=== PATIENT | male | born 1965 | race Caucasian/White ===

== ENCOUNTER → 2017-05-15 | Outpatient (CLI) | payer BC ==
--- NOTE | 2017-05-16 08:36 | PCVCIMAG ---
APPROVED REPORT Exam: Stress Echocardiogram Indication: Palpitations , Chest pain Patient Location: Echo lab Stress Nurse: Kamilah Lal RN Status: routine Ht: 6 ft 0 in HR: 75 bpm BP: 160/60 mmHg Rhythm: NSR Procedure The patient underwent an Exercise Stress Test using the Matthew Protocol. Blood pressure, heart rate, and EKG were monitored. An Echocardiogram was performed by collection technician in four stages in quad fashion. At peak stress, four selected images were obtained and placed side by side with resting images for comparison. Stress Test Details Stress Test: Exercise stress testing was performed using a Matthew protocol. HR Resting HR: 75 bpmMax Heart Rate (APMHR): 168 bpm Max HR Achieved: 193 bpmTarget HR (85% APMHR): 142 bpm % of APMHR: 114 Recovery HR: 129 bpm HR response to stress: Normal HR response to stress BP Resting BP: 100/60 mmHg Max BP: 160/60 mmHg Recovery BP: 118/78 mmHg ECG Resting ECG: Sinus Rhythm with nonspecific T wave abnormality Stress ECG: Sinus Rhythm Arrhythmia: isolated PVCs Recovery ECG: Sinus Rhythm with nonspecific T wave abnormality Recovery Arrhythmia: occasional isolated PVC Clinical Reason for Termination: Maximal effort Exercise duration: 14 min 7 sec Highest Stage Achieved: Stage 5: 5.0 mph at 18% grade. Exercise capacity: 17.5 METs Overall Exercise Capacity for Age: Excellent Scale: Active Angina Score: None Stress ECG Conclusion 1. SUBJECTIVELY NEGATIVE FOR ISCHEMIA 2. ELECTROCARDIOGRAPHICALLY NEGATIVE FOR ISCHEMIA 3. EXCELLENT FUNCTIONAL CAPACITY Pre-Stress Echo The resting Echocardiogram showed normal left ventricular contractility with an estimated Ejection Fraction of about 50-55%. Normal wall motion in all segments on baseline images. Post-Stress Echo The stress Echocardiogram showed normal left ventricular contractility with an estimated Ejection Fraction of about 60-65%. Normal augmentation of wall motion in all segments on post stress images. Clinical No clinical or ECG evidence for ischemia. Conclusion Clinical Response: Non-ischemic Stress ECG Response: Non-ischemic Stress Echo Images: Non-ischemic The left ventricle is normal in size and wall thickness in both the rest and stress images. 1. LOW RISK STUDY Other Information Study Quality: Adequate <Conclusion> The left ventricle is normal in size and wall thickness in both the rest and stress images. 1. LOW RISK STUDY
== END | disposition home or self-care (01) ==
LOC: PCVCIMAG 13:13
PROVIDERS: ATTEND Internal Medicine
DX: R00.2 Palpitations (principal); R07.9 Chest pain, unspecified; F41.9 Anxiety disorder, unspecified
CPT/HCPCS: 93325; 93351